=== PATIENT | male | born 1980 | race Hispanic/Latino ===

== ENCOUNTER 2021-08-16 00:36 | Emergency (ER) | payer OTHER ==
[~2021-08-16] VITALS: Ht 165.1 cm; Wt 78.0 kg
[2021-08-16] MEDS ORDERED: ORPHENADRINE CITRATE 30 MG/ML ML ONE (01:22)
[2021-08-16] MEDS ORDERED: KETOROLAC 60 MG VIAL (30MG/ML) ONE (01:22)
[2021-08-16] MEDS ORDERED: CYCL-309 PO (01:23)
[2021-08-16] MEDS ORDERED: MELO7.5T12 PO (01:23)
[2021-08-16] MEDS ORDERED: KETOROLAC 60 MG VIAL (30MG/ML) IM ONE (01:30)
[2021-08-16] MEDS ORDERED: ORPHENADRINE CITRATE 30 MG/ML ML IM ONE (01:30)
[2021-08-16 01:38] VITALS: BP 146/83
== END 2021-08-16 01:38 | disposition home or self-care (01) ==
LOC: EDH 00:36
DX: S76.912A Strain of unspecified muscles, fascia and tendons at thigh level, left thigh, initial encounter (principal); S76.911A Strain of unspecified muscles, fascia and tendons at thigh level, right thigh, initial encounter; M62.838 Other muscle spasm; Z79.1 Long term (current) use of non-steroidal anti-inflammatories (NSAID); X58.XXXA Exposure to other specified factors, initial encounter; Y93.89 Activity, other specified; Y92.89 Other specified places as the place of occurrence of the external cause; Y99.8 Other external cause status
CPT/HCPCS: 96372 ×2; 99284; J1885; J2360